=== PATIENT | female | born 1965 | race Caucasian/White ===

== ENCOUNTER 2021-11-11 12:42 | Emergency (ER) | payer BC | END 2021-11-11 14:20 | disposition home or self-care (01) | LOC: JP.ED 12:42 | DX: N39.0 Urinary tract infection, site not specified (principal); Z88.5 Allergy status to narcotic agent | CPT/HCPCS: 81001; 87086; 87088; 87186; 99282; 99284 ==

== ENCOUNTER 2021-11-13 15:34 | Emergency (ER) | payer BC ==
[2021-11-13] MEDS ORDERED: fentaNYL 50 MCG/ML SDV IVPUSH ONE ×2 (17:41→18:26)
[2021-11-13] MEDS ORDERED: Ketorolac 30 MG/ML SDV IVPUSH ONE (17:41)
[2021-11-13] MEDS ORDERED: Ondansetron 4 MG/2 ML SDV IVPUSH ONE (17:42)
[2021-11-13] MEDS ORDERED: Lactated Ringers 1,000 ML IV ONE (17:42)
[2021-11-13 17:53] LABS: ESTIMATED GFR 57 (>60)
[2021-11-13] MEDS ORDERED: Acetaminophen/HYDROcodone 325-5 MG Tab PO ONE (19:06)
[2021-11-13] MEDS ORDERED: HYDROmorphone 0.5 MG/0.5 ML Syringe IVPUSH ONE (19:44)
== END 2021-11-13 20:51 | disposition home or self-care (01) ==
LOC: JP.ED 15:34
DX: N12 Tubulo-interstitial nephritis, not specified as acute or chronic (principal); Z88.5 Allergy status to narcotic agent; Z79.899 Other long term (current) drug therapy; Z90.710 Acquired absence of both cervix and uterus
CPT/HCPCS: 36415; 74176; 80048; 81001; 85025; 86140; 96361; 96374; 96375; 96376; 99282; 99284-25; J1170; J1885; J2405; J3010; J7120